=== PATIENT | female | born 1975 | race African-American/Black ===

== ENCOUNTER 2025-04-08 16:20 | Emergency (ER) | payer OTHER, SELFPAY ==
[2025-04-08 16:33] VITALS: BP 150/78; PULSE 66; RESP 20; TEMP 36.4; O2SAT 100
--- NOTE | 2025-04-08 19:24 | ED.SKABFB ---
HPI - Skin/Abscess/Foreign Bdy General Chief complaint: Skin/Abscess/Foreign Body Stated complaint: Rash Time Seen by Provider: 04/08/25 16:45 Source: patient and RN notes reviewed Mode of arrival: ambulatory Limitations: no limitations History of Present Illness HPI narrative: 49-year-old female presents Express Care complaining of poison antonia. Patient was recently seen at an urgent care in [place] approximately 5 days ago. Patient was prescribed along prednisone taper, triamcinolone cream with symptoms. Patient states her symptoms are worsening. Patient says the rash is continuing to spread and noticing more blisters throughout her body. Patient denies any pain, fevers, body aches, chills, nausea, vomiting, or any other symptoms. Patient has been also using Zyrtec Benadryl to help with itching symptoms. Related Data Home Medications ?Medication ?Instructions ?Recorded ?Confirmed ?Last Taken ?Type meloxicam 15 mg tablet mg 04/08/25 Unknown History prednisone 20 mg tablet mg 04/08/25 Unknown History triamcinolone acetonide 0.1 % applic topical 04/08/25 Unknown History topical cream valacyclovir 500 mg tablet mg 04/08/25 Unknown History Allergies Allergy/AdvReac Type Severity Reaction Status Date / Time No Known Allergies Allergy Verified 04/08/25 16:32 Review of Systems Review of Systems: CONSTITUTIONAL: Denies fever, chills, or sweats. EYES: Denies visual changes, redness, or discharge. ENT: Denies rhinorrhea, congestion, sore throat, or otalgia. CARDIOVASCULAR: Denies chest pain, palpitations, or edema. RESPIRATORY: Denies cough or dyspnea. GASTROINTESTINAL: Denies abdominal pain, nausea, vomiting, or diarrhea. GENITOURINARY: Denies dysuria or hematuria. SKIN: Positive for rash and itching. MUSCULOSKELETAL: Denies back pain, joint pain, or myalgia. NEUROLOGIC: Denies headache, numbness, or weakness. PSYCHIATRIC: Denies anxiety or depression. All other systems reviewed are negative, except as documented in HPI. PMFSH Comments At the time of my signature, I reviewed and agree with the nursing past medical, surgical, social, and family history. There is no relevant family history pertinent to the patient complaint. Exam Narrative: GENERAL: This is a well-nourished, well-developed adult, in no apparent distress. They are non ill-appearing, nontoxic appearing. HEAD: normocephalic, atraumatic. EYES: Sclera clear/white. Conjunctiva normal. Vision is grossly intact. Extraocular movements intact EARS: External ears normal, Hearing grossly intact. NOSE: External nose normal THROAT: Mucous membranes moist NECK: Neck supple, CARDIOVASCULAR: Regular rate and rhythm RESPIRATORY: Respiratory rate normal, respiratory effort nonlabored, no respiratory distress SKIN: There is a erythematous macular papular and vesicular rash scattered throughout the patient's arms, legs, trunk. No rash to face. No area of fluctuance, induration, or surrounding cellulitis. NEURO: awake, alert, and oriented to person, place and time. There were no obvious focal neurologic abnormalities. EXTREMITIES: No joint tenderness, effusion, or edema noted. Course Course Emergency Course: Portions of this record may have been created with voice recognition software Level of Care: Express Care Visit Vital Signs Vital signs: Vital Signs Temperature 97.6 F 04/08/25 16:33 Pulse Rate 66 04/08/25 16:33 Respiratory Rate 20 04/08/25 16:33 Blood Pressure 150/78 H 04/08/25 16:33 Pulse Oximetry 100 04/08/25 16:33 Oxygen Delivery Room Air 04/08/25 16:33 Temperature 97.6 F 04/08/25 16:33 Pulse Rate 66 04/08/25 16:33 Respiratory Rate 20 04/08/25 16:33 Blood Pressure 150/78 H 04/08/25 16:33 Pulse Oximetry 100 04/08/25 16:33 Oxygen Delivery Room Air 04/08/25 16:33 Reviewed MDM - Skin/Abscess/Foreign Bdy MDM Narrative Medical decision making narrative: Appears to be poison antonia contact dermatitis. Advised patient to be patient with prednisone taper. Will prescribe clobetasol cream instead of triamcinolone. Since patient continues to scratch her lesions will go ahead prophylactically treat her for infection with cephalexin. Advised patient to use [id number] poison antonia soap to remove oils a for skin. Also advised patient a washer clothes thoroughly that may have poison antonia on it. Discussed physical exam findings. Advised supportive measures and signs/symptoms to go to the ER. Pt is appropriate for outpt treatment and f/u. Differential Diagnosis Differential diagnosis: Likely cellulitis, eczema, impetigo and contact dermatitis Critical Care Time Critical Care Time Critical Care Time: No Discharge Plan Discharge Clinical Impression: Poison antonia Patient Disposition: Home Condition: Stable Instructions: Antibiotic Form, Poison Antonia (ED) Additional Instructions: Continue taking your prednisone as directed. Take it in the morning and take it with food. Take cephalexin as directed. Stop using the triamcinolone cream it start taking clobetasol cream as directed. Please only apply to the affected area. You may use [id number] Tecnu soap as directed on the bottle to help remove the oils from poison antonia off your skin. You may use calamine lotion, camphor, Benadryl cream as needed for itchiness symptoms. You may also take Zyrtec or Claritin as needed for allergy or itchiness symptoms. Follow-up PCP in 3-5 days. If you develop any worsening redness, swelling, discharge, fevers, breathing problems, or any other concerns please go to the ER immediately. Patient Language: Luxembourger Prescriptions: New cephalexin 500 mg capsule 500 mg PO Q6H 7 Days Qty: 28 0RF clobetasol 0.05 % cream 1 applic topical BID 7 Days Qty: 30 0RF Rx Instructions: Do not apply to face. No Action meloxicam 15 mg tablet prednisone 20 mg tablet valacyclovir 500 mg tablet triamcinolone acetonide 0.1 % cream TOPICAL Follow-up/Referrals: Fish,MD Angelina [Primary Care Provider] - Time of Disposition: 17:00
== END 2025-04-08 17:06 | disposition home or self-care (01) ==
PROVIDERS: PCP Family Medicine
DX: L23.7 Allergic contact dermatitis due to plants, except food (principal)
CPT/HCPCS: 99203; G0463